=== PATIENT | female | born 1940 | race Caucasian/White ===

== ENCOUNTER 2017-01-20 18:01 | Emergency (ER) | payer MEDICARE, MEDICAID ==
[~2017-01-20] VITALS: Ht 160 cm; Wt 81.0 kg
[~2017-01-20 18:01] MED LIST: AMIT8CAP6 PO; AMLO2.5T PO; AMLO5TAB22 PO; ATEN-100 PO; CHOL50006 PO; COCO1000 PO; FENO54TA PO; FISH120014 PO; LACTCAP7 PO; LISI-360 PO; LORA-474 PO; MULT-118 PO; POTA-243 PO; PROT40TA PO
[2017-01-20 18:16] VITALS: BP 178/73; PULSE 69; RESP 17; TEMP 97.7; O2SAT 100
[2017-01-20] MEDS ORDERED: ZETI10TA5 PO (18:29)
[2017-01-20] MEDS ORDERED: POTA-243 PO (18:29)
[2017-01-20] MEDS ORDERED: FLUT50SP EACH NARE (18:29)
[2017-01-20] MEDS ORDERED: ALBU0.63 NEB (18:29)
[2017-01-20] MEDS ORDERED: LORA-474 PO (18:29)
[2017-01-20] MEDS ORDERED: ATEN25TA PO (18:29)
[2017-01-20] MEDS ORDERED: PROT40TA PO (18:29)
[2017-01-20] MEDS ORDERED: LOSA25TA PO (18:29)
[2017-01-20] MEDS ORDERED: SODIUM CHLORIDE 0.9% FLUSH 5 ML FLUSH IVF PRN (18:30)
[2017-01-20] MEDS ORDERED: ONDANSETRON HCL 4 MG/2 ML VIAL IV PUSH ONE (18:30)
[2017-01-20 18:33] VITALS: O2SAT 100
[2017-01-20 18:37] VITALS: BP_SYST 144; BP_SYST 176; BP_DIAS 74; BP_DIAS 88
[2017-01-20 18:37] LABS: AUTOMATED NEUTROPHIL # 3.7 TH/MM3 (1.8-7.7); BASOPHIL # 0.1 TH/MM3 (0-0.2); BASOPHIL % 1.1 % (0.0-2.0); EOSINOPHIL # 0.1 TH/MM3 (0-0.4); EOSINOPHIL % 2.1 % (0.0-4.0); HEMO FLAGS DIFF FINAL; LYMPHOCYTE # 2.1 TH/MM3 (1.0-4.8); MEAN CELL VOLUME 86.8 FL (80.0-100.0); MEAN CORPUSCULAR HEMOGLOBIN 28.2 PG (27.0-34.0); MEAN CORPUSCULAR HGB CONC 32.5 % (32.0-36.0); NEUT % 55.8 % (16.0-70.0); PLATELET COUNT 258 TH/MM3 (150-450); RED BLOOD COUNT 4.38 MIL/MM3 (4.00-5.30); RED CELL DISTRIBUTION WIDTH 13.3 % (11.6-17.2); WHITE BLOOD COUNT 6.5 TH/MM3 (4.0-11.0)
[2017-01-20 18:48] LABS: CHLORIDE 107 MEQ/L (98-107); POTASSIUM 3.4 MEQ/L (3.5-5.1); SODIUM (NA) 142 MEQ/L (136-145)
[2017-01-20 18:52] LABS: ANION GAP 10 MEQ/L (5-15); BICARBONATE 25.4 MEQ/L (21.0-32.0); BLOOD UREA NITROGEN 17 MG/DL (7-18); MAGNESIUM 1.8 MG/DL (1.5-2.5)
--- NOTE | 2017-01-20 18:52 | RADHPO ---
EXAM DATE/TIME: 01/20/2017 18:26 [facility] COMPARISON: CHEST SINGLE AP, August 28, 2014, 23:41. INDICATIONS : Chest pain. Weakness. MEDICAL HISTORY : Congestive heart failure. SURGICAL HISTORY : CABG. Pacemaker. ENCOUNTER: Initial ACUITY: 2 days PAIN SCORE: 2/10 LOCATION: Bilateral chest FINDINGS: Single view of the chest demonstrates interval placement of a dual-lead pacemaker inserted through th e left subclavian vein. Leads appear to be in appropriate position. There is no evidence of pneumothorax or acute process. Heart and mediastinal structures are stable. There is evidence of previous open heart surgery. CONCLUSION: Interval placement of a left-sided transvenous pacemaker which appears to be in appropriate position. No evidence of acute cardiopulmonary process. Pio Veronica MD on January 20, 2017 at 18:50 Board Certified Radiologist. This report was verified electronically.
[2017-01-20 18:54] LABS: APTT (PATIENT) 27.3 SEC (24.3-30.1)
[2017-01-20 18:55] LABS: GLOMERULAR FILTRATION RATE 71 ML/MIN (>89)
--- NOTE | 2017-01-20 19:09 | PD ---
HPI . Epigastric pain Chief Complaint: Pain: Acute or Chronic Time Seen by Provider: 18:10 Travel History International Travel<30 days: No Contact w/Intl Traveler<30days: No Traveled to known affect area: No History of Present Illness HPI Patient presents with the acute onset of epigastric pain nausea. She was reportedly quite pale. The symptoms started sometime after lunch. She has not vomited. She reports chronic shortness of breath related to COPD. In addition, the patient reports a concussion on November 26 which has left her with some residual right-sided weakness. She has been using a walker since that time. She states that she has chronic headaches and dizziness because of the concussion. She reports that she was seen at an outside facility at the time of the injury. 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) Cerebrovascular Accident: Yes (TIA?) Diabetes: No Diminished Hearing: Yes (R HEARING DIMINISHED) Diverticulitis: Yes (DIVERTICULOSIS) Endocrine: No Gastrointestinal Disorders: Yes (GERD; GASTRITIS; ) GERD: Yes Genitourinary: Yes ("CYSTIC KIDNEYS") Hiatal Hernia: Yes Hypertension: Yes Immune Disorder: No Kidney Stones: No Medical other: Yes (POST CONCUSSION SYNDROM 11/2016) Musculoskeletal: Yes (ARTHRITIS; BACK PAIN;KNEE PAIN) Neurologic: Yes (NEUROPATHY) Psychiatric: No Respiratory: Yes (COPD; ASTHMA) Migraines: Yes Pneumonia: Yes Radiation Therapy: No Renal Failure: No Seizures: No Sickle Cell Disease: No Sleep Apnea: No Thyroid Disease: No Ulcer: No Tetanus Vaccination: > 5 Years Influenza Vaccination: Yes Menopausal: Yes : 5 Para: 4 Miscarriage: 1 Tubal Ligation: Yes Past Surgical History Abdominal Surgery: Yes (.APPENDECTOMY ; VANDANA) AICD: No Appendectomy: Yes Arteriovenous Shunt: No Body Medical Devices: NONE Cardiac Surgery: No Cholecystectomy: Yes Ear Surgery: No Endocrine Surgery: Yes (TUMOR REMOVED FROM THYMUS) Eye Surgery: No Genitourinary Surgery: No Gynecologic Surgery: Yes (HYSTERECTOMY; BILATERAL SALPINGO-OOPHORECTOMY) Hysterectomy: Yes Insulin Pump: No Joint Replacement: No Oral Surgery: No Pacemaker: Yes (MEDTRONIC) Thoracic Surgery: Yes Other Surgery: Yes (THYMUS GLAND SURGERY, RIGHT WRIST) Social History Alcohol Use: No Tobacco Use: No (QUIT 36 YEARS, SMOKED FOR 30+ YRS 2+ PACK OF CIGS A DAY) Substance Use: No Allergies-Medications (Allergen,Severity, Reaction): Coded Allergies: Amoxicillin (Verified Allergy, Severe, 01/20/17) Chlorpheniramine (Verified Allergy, Severe, 01/20/17) Clavulanic Acid (Verified Allergy, Severe, 01/20/17) Guaifenesin (Verified Allergy, Severe, PVC, 01/20/17) PT REPORTS ALLERGY TO ALL DECONGESTANTS Levaquin (Verified Allergy, Severe, NAUSEA/VOMITING, 01/20/17) INTERMEDIATE REACTION Niacin (Verified Allergy, Severe, SKIN BURNING ; SEVERE REDNESS WHOLE BODY , 01/20/17) Pseudoephedrine (Verified Allergy, Severe, 01/20/17) Augmentin (Verified Allergy, Intermediate, NAUSEA AND VOMITING, 01/20/17) Benadryl (Verified Allergy, Intermediate, PVC, 01/20/17) PT DOES NOT THINK SHE IS ALLERGIC TO THIS Codeine (Verified Allergy, Intermediate, SHAKING; NAUSEA, 01/20/17) MILD REACTION Morphine (Verified Allergy, Mild, 01/20/17) DOESNT THINK SHE IS ALLERGIC TO THIS Cipro (Verified Adverse Reaction, Intermediate, n/v, 01/20/17) Uncoded Allergies: ANTIHISTIMINES (Allergy, Unknown, 05/16/14) DECONGESTANTS (Allergy, Unknown, 05/16/14) Reported Meds & Prescriptions Reported Meds & Active Scripts Active Fioricet (Kosexuavjn-Squlmryxarppl-Xcfdogtq) 50-300-40 Mg Cap 1-2 Cap PO Q6H PRN Zofran Odt (Ondansetron Odt) 4 Mg Tab 4 Mg SL Q6HR PRN Reported Albuterol Neb (Albuterol Sulfate) 0.63 Mg/3 Ml Neb 0.63 Mg NEB Q4HR NEB PRN Fluticasone Nasal [place] 50 Mcg/Act Naspr 100 Mcg EACH NARE BID 50 mcg/spray Zetia (Ezetimibe) 10 Mg Tab 10 Mg PO DAILY Losartan (Losartan Potassium) 25 Mg Tab 25 Mg PO DAILY Klor-Con 10 (Potassium Chloride) 10 Meq Tab 10 Meq PO DAILY Protonix (Pantoprazole Sodium) 40 Mg Tab 40 Mg PO DAILY Ativan (Lorazepam) 1 Mg Tab 1.5 Mg PO TID PRN Atenolol 25 Mg Tab 12.5 Mg PO DAILY Review of Systems Except as stated in HPI: all other systems reviewed are Neg General / Constitutional: Positive: Other (reportedly pale earlier today), No : Fever, Chills Eyes: No: Blurred Vision, Photophobia HENT: Positive: Headaches, Lightheadedness Cardiovascular: No: Chest Pain or Discomfort Respiratory: Positive: Shortness of Breath Gastrointestinal: Positive: Nausea, Abdominal Pain, No: Vomiting, Diarrhea Genitourinary: No: Urgency, Frequency, Dysuria Neurologic: Positive: Dizziness, Focal Abnormalities (right sided weakness since November 26.) Physical Exam Narrative GENERAL: Healthy-appearing older woman who is in no acute distress. SKIN: Warm and dry. HEAD: Normocephalic. She has 2 palpable contusions on the right side of her scalp. They're very small. EYES: Pupils equal and round. Extraocular movements are intact. ENT: No nasal bleeding or discharge. Mucous membranes pink and moist. NECK: Trachea midline. Neck is supple. CARDIOVASCULAR: Regular rate and rhythm. Heart sounds are normal. RESPIRATORY: No accessory muscle use. Lungs are clear with full air movement throughout. GASTROINTESTINAL: Abdomen soft. Epigastric tenderness. Nondistended. Normal bowel sounds. MUSCULOSKELETAL: No obvious deformities. No edema. NEUROLOGICAL: Awake and alert. No obvious cranial nerve deficits. Motor grossly within normal limits. Normal speech. PSYCHIATRIC: Appropriate mood and affect; insight and judgment normal. Data Data Last Documented VS Vital Signs Date Time Temp Pulse Resp B/P Pulse Ox O2 Delivery O2 Flow Rate FiO2 01/20/17 19:23 60 18 151/89 97 Room Air 01/20/17 18:16 97.7 Orders Basic Metabolic Panel (Bmp) (01/20/17 18:20) Ckmb (Isoenzyme) Profile (01/20/17 18:20) Complete Blood Count With Diff (01/20/17 18:20) Magnesium (Mg) (01/20/17 18:20) Prothrombin Time / Inr (Pt) (01/20/17 18:20) Act Partial Throm Time (Ptt) (01/20/17 18:20) Troponin I (01/20/17 18:20) Lipase (01/20/17 18:20) Chest, Single Ap (01/20/17 18:20) Ecg Monitoring (01/20/17 18:20) Bilateral Bp Monitoring (01/20/17 18:20) Iv Access Insert/Monitor (01/20/17 18:20) Oximetry (01/20/17 18:20) Oxygen Administration (01/20/17 18:20) Sodium Chloride 0.9% Flush (Ns Flush) (01/20/17 18:30) Ondansetron Inj (Zofran Inj) (01/20/17 18:30) Ct Brain W/O Iv Contrast(Rout) (01/20/17 ) Electrocardiogram (01/20/17 18:05) Labs Laboratory Tests Test 01/20/17 18:29 White Blood Count 6.5 TH/MM3 Red Blood Count 4.38 MIL/MM3 Hemoglobin 12.3 GM/DL Hematocrit 38.0 % Mean Corpuscular Volume 86.8 FL Mean Corpuscular Hemoglobin 28.2 PG Mean Corpuscular Hemoglobin 32.5 % Concent Red Cell Distribution Width 13.3 % Platelet Count 258 TH/MM3 Mean Platelet Volume 8.0 FL Neutrophils (%) (Auto) 55.8 % Lymphocytes (%) (Auto) 33.0 % Monocytes (%) (Auto) 8.0 % Eosinophils (%) (Auto) 2.1 % Basophils (%) (Auto) 1.1 % Neutrophils # (Auto) 3.7 TH/MM3 Lymphocytes # (Auto) 2.1 TH/MM3 Monocytes # (Auto) 0.5 TH/MM3 Eosinophils # (Auto) 0.1 TH/MM3 Basophils # (Auto) 0.1 TH/MM3 CBC Comment DIFF FINAL Differential Comment Prothrombin Time 11.0 SEC Prothromb Time International 1.0 RATIO Ratio Activated Partial 27.3 SEC Thromboplast Time Sodium Level 142 MEQ/L Potassium Level 3.4 MEQ/L Chloride Level 107 MEQ/L Carbon Dioxide Level 25.4 MEQ/L Anion Gap 10 MEQ/L Blood Urea Nitrogen 17 MG/DL Creatinine 0.79 MG/DL Estimat Glomerular Filtration 71 ML/MIN Rate Random Glucose 101 MG/DL Calcium Level 8.5 MG/DL Magnesium Level 1.8 MG/DL Total Creatine Kinase 89 U/L Troponin I LESS THAN 0.02 NG/ML Lipase 319 U/L MDM Medical Decision Making Medical Screen Exam Complete: Yes Emergency Medical Condition: Yes Interpretation(s) EKG shows a sinus rhythm with no ST segment elevation or depression. Differential Diagnosis Differential diagnosis of epigastric pain includes but is not limited to musculoskeletal pain, pulmonary embolism, acute coronary syndrome, pneumonia, pleurisy Narrative Course Patient presents for the evaluation of epigastric pain associated with nausea and paleness. I will also further evaluate her head injury which occurred on November 26 and left her with residual right-sided weakness and chronic headaches. Specifically , she will have a head CT. CBC & BMP Diagram 01/20/17 18:29 Cardiac enzymes are negative. Lipase is normal. Chest x-ray shows a pacemaker. No acute process. The chest x-ray was independently viewed by me. CT head CONCLUSION: Stable appearance of the brain. No evidence of acute infarct, hemorrhage, mass or edema. Diagnosis Primary Impression: Epigastric pain Additional Impression: Postconcussive syndrome Additional Instructions: Follow-up with your Primary Care Physician for ongoing treatment of the postconcussive headaches. Med/Other Pt SpecificInfo: Prescription(s) given Scripts Xgxuaqroud-Megbrzuvjvuhj-Nwkprtmw (Fioricet)50-300-40 Mg Cap1-2 Cap PO Q6H PRN ( HEADACHE) #12 CAP Ref 0 Prov:Abby Zimmer MD 01/20/17 Ondansetron Odt (Zofran Odt)4 Mg Tab4 Mg SL Q6HR PRN (Nausea/Vomiting) #30 TAB Ref 0 Prov:Abby Zimmer MD 01/20/17 Disposition: 01 DISCHARGE HOME Condition: Stable Abby Zimmer MD Jan 20, 2017 19:09
[2017-01-20 19:23] VITALS: BP 151/89; PULSE 60; RESP 18; O2SAT 97
[2017-01-20 19:38] LABS: CREATINE KINASE 89 U/L (26-192)
[2017-01-20] MEDS ORDERED: ZOFR4TAB3 SL (19:50)
[2017-01-20] MEDS ORDERED: BUTA1CAP PO (19:50)
--- NOTE | 2017-01-20 19:59 | RADHPO ---
EXAM DATE/TIME: 01/20/2017 19:04 [facility] COMPARISON: CT BRAIN W/O CONTRAST, April 04, 2014, 18:21. INDICATIONS : Cephalgia. Blurred vision. Weakness. RADIATION DOSE: 61.02 CTDIvol (mGy) MEDICAL HISTORY : Hypertension. Cerebrovascular disease. Chronic obstructive pulmonary disease. SURGICAL HISTORY : Appendectomy. Cholecystectomy.Pacemaker. ENCOUNTER: Initial ACUITY: 2 months PAIN SCALE: 6/10 LOCATION: cranial TECHNIQUE: Multiple contiguous axial images were obtained of the head. Using automated exposure control and adj ustment of the mA and/or kV according to patient size, radiation dose was kept as low as reasonably a chievable to obtain optimal diagnostic quality images. FINDINGS: CEREBRUM: The ventricles are normal for age. No evidence of midline shift, mass lesion, hemorrhage or acute in farction. No extra-axial fluid collections are seen. POSTERIOR FOSSA: The cerebellum and brainstem are intact. The 4th ventricle is midline. The cerebellopontine angle i s unremarkable. EXTRACRANIAL: The visualized portion of the orbits is intact. SKULL: The calvaria is intact. No evidence of skull fracture. CONCLUSION: Stable appearance of the brain. No evidence of acute infarct, hemorrhage, mass or edema. Pio Veronica MD on January 20, 2017 at 19:57 Board Certified Radiologist. This report was verified electronically.
[2017-01-20 20:32] VITALS: BP 152/84; PULSE 62; RESP 18; O2SAT 98
--- NOTE | 2017-01-21 10:57 | EKG ---
Date Performed: 01/20/2017 Time Performed: 18:05:58 PTAGE: 76 years EKG: Sinus rhythm . Leftward axis Lateral T wave changes are nonspecific Borderline ECG PREVIOUS TRACING : 02/06/2015 07.31 DOCTOR: Oliver Aly Interpretating Date/Time 01/21/2017 10:55:08
== END 2017-01-20 20:42 | disposition home or self-care (01) ==
LOC: PHED 18:01
DX: R10.13 Epigastric pain (principal); F07.81 Postconcussional syndrome; I10 Essential (primary) hypertension; M19.90 Unspecified osteoarthritis, unspecified site; J45.909 Unspecified asthma, uncomplicated; E78.00 Pure hypercholesterolemia, unspecified
CPT/HCPCS: 70450; 71010; 80048; 82550; 83690; 83735; 84484; 85025; 85610; 85730; 93005; 96374; 99284; J2405

== ENCOUNTER 2017-05-15 07:41 | Emergency (ER) | payer MEDICARE, MEDICAID ==
[~2017-05-15 07:41] MED LIST changes: +ALBU0.63 NEB; -AMIT8CAP6 PO; -AMLO2.5T PO; -AMLO5TAB22 PO; -ATEN-100 PO; +ATEN25TA PO; +BUTA1CAP PO; -CHOL50006 PO; -COCO1000 PO; -FENO54TA PO; -FISH120014 PO; +FLUT50SP EACH NARE; -LACTCAP7 PO; -LISI-360 PO; +LOSA25TA PO; -MULT-118 PO; +ZETI10TA5 PO; +ZOFR4TAB3 SL
[2017-05-15 07:49] VITALS: BP 160/74; PULSE 74; RESP 18; O2SAT 98
[2017-05-15 07:56] VITALS: BP 127/69; PULSE 63; RESP 18; TEMP 97.8; O2SAT 98
[2017-05-15] MEDS ORDERED: SODIUM CHLORIDE 0.9% FLUSH 10 ML FLUSH IVF PRN (08:00)
[2017-05-15] MEDS ORDERED: LORazepam 2 MG/ML VIAL IV PUSH PRN (08:00)
[2017-05-15] MEDS ORDERED: ASPIRIN 81 MG CHEW TAB PO ONE (08:00)
[2017-05-15] MEDS ORDERED: NORV2.5T PO (08:05)
[2017-05-15] MEDS ORDERED: ASPI81CH CHEW (08:05)
[2017-05-15 08:18] LABS: AUTOMATED NEUTROPHIL # 4.1 TH/MM3 (1.8-7.7); BASOPHIL # 0.1 TH/MM3 (0-0.2); BASOPHIL % 1.6 % (0.0-2.0); EOSINOPHIL # 0.2 TH/MM3 (0-0.4); EOSINOPHIL % 3.6 % (0.0-4.0); HEMATOCRIT 37.1 % (35.0-46.0); HEMO FLAGS DIFF FINAL; LYMPH % 21.9 % (9.0-44.0); LYMPHOCYTE # 1.3 TH/MM3 (1.0-4.8); MEAN CELL VOLUME 85.7 FL (80.0-100.0); MEAN CORPUSCULAR HEMOGLOBIN 28.6 PG (27.0-34.0); MEAN CORPUSCULAR HGB CONC 33.4 % (32.0-36.0); MONO % 6.5 % (0.0-8.0); NEUT % 66.4 % (16.0-70.0); PLATELET COUNT 230 TH/MM3 (150-450); RED BLOOD COUNT 4.33 MIL/MM3 (4.00-5.30); RED CELL DISTRIBUTION WIDTH 14.4 % (11.6-17.2); WHITE BLOOD COUNT 6.1 TH/MM3 (4.0-11.0)
--- NOTE | 2017-05-15 08:21 | PD ---
HPI . Chest pain Chief Complaint: Chest Pain Time Seen by Provider: 07:52 Travel History International Travel<30 days: No Contact w/Intl Traveler<30days: No Traveled to known affect area: No History of Present Illness HPI This patient presents with a chief complaint of chest pain. Onset was last night. It is associated with shortness of breath. She describes the pain as a pressure-like sensation and rates it as 6/10. She denies any associated diaphoresis. She reports that her pain is exacerbated by palpation. It is also worse with deep respirations. 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) Cerebrovascular Accident: Yes (TIA?) Diabetes: No Diminished Hearing: Yes (R HEARING DIMINISHED) Diverticulitis: Yes (DIVERTICULOSIS) Endocrine: No Gastrointestinal Disorders: Yes (GERD; GASTRITIS; ) GERD: Yes Genitourinary: Yes ("CYSTIC KIDNEYS") Hiatal Hernia: Yes Hypertension: Yes Immune Disorder: No Kidney Stones: No Musculoskeletal: Yes (ARTHRITIS; BACK PAIN;KNEE PAIN) Neurologic: Yes (NEUROPATHY) Psychiatric: No Respiratory: Yes (COPD; ASTHMA) Migraines: Yes Pneumonia: Yes Radiation Therapy: No Renal Failure: No Seizures: No Sickle Cell Disease: No Sleep Apnea: No Thyroid Disease: No Ulcer: No Influenza Vaccination: Yes ?: Not Menopausal: Yes : 5 Para: 4 Miscarriage: 1 Tubal Ligation: Yes Past Surgical History Abdominal Surgery: Yes (.APPENDECTOMY ; VANDANA) AICD: No Appendectomy: Yes Arteriovenous Shunt: No Body Medical Devices: NONE Cardiac Surgery: No Cholecystectomy: Yes Ear Surgery: No Endocrine Surgery: Yes (TUMOR REMOVED FROM THYMUS) Eye Surgery: No Genitourinary Surgery: No Gynecologic Surgery: Yes (HYSTERECTOMY; BILATERAL SALPINGO-OOPHORECTOMY) Hysterectomy: Yes Insulin Pump: No Joint Replacement: No Oral Surgery: No Pacemaker: Yes (MEDTRONIC) Thoracic Surgery: Yes Other Surgery: Yes (THYMUS GLAND SURGERY, RIGHT WRIST) Social History Alcohol Use: No Tobacco Use: No (QUIT 36 YEARS, SMOKED FOR 30+ YRS 2+ PACK OF CIGS A DAY) Substance Use: No Allergies-Medications (Allergen,Severity, Reaction): Coded Allergies: Amoxicillin (Verified Allergy, Severe, 05/15/17) Chlorpheniramine (Verified Allergy, Severe, 05/15/17) Clavulanic Acid (Verified Allergy, Severe, 05/15/17) Guaifenesin (Verified Allergy, Severe, PVC, 05/15/17) PT REPORTS ALLERGY TO ALL DECONGESTANTS Levaquin (Verified Allergy, Severe, NAUSEA/VOMITING, 05/15/17) INTERMEDIATE REACTION Niacin (Verified Allergy, Severe, SKIN BURNING ; SEVERE REDNESS WHOLE BODY , 05/15/17) Pseudoephedrine (Verified Allergy, Severe, 05/15/17) Augmentin (Verified Allergy, Intermediate, NAUSEA AND VOMITING, 05/15/17) Benadryl (Verified Allergy, Intermediate, PVC, 05/15/17) PT DOES NOT THINK SHE IS ALLERGIC TO THIS Codeine (Verified Allergy, Intermediate, SHAKING; NAUSEA, 05/15/17) MILD REACTION Morphine (Verified Allergy, Mild, 05/15/17) DOESNT THINK SHE IS ALLERGIC TO THIS Cipro (Verified Adverse Reaction, Intermediate, n/v, 05/15/17) Uncoded Allergies: ANTIHISTIMINES (Allergy, Unknown, 05/16/14) DECONGESTANTS (Allergy, Unknown, 05/16/14) Reported Meds & Prescriptions Reported Meds & Active Scripts Active Reported Aspirin 81 Mg Chew 81 Mg CHEW DAILY Norvasc (Amlodipine Besylate) 2.5 Mg Tab 2.5 Mg PO HS Albuterol Neb (Albuterol Sulfate) 0.63 Mg/3 Ml Neb 0.63 Mg NEB Q4HR NEB PRN Fluticasone Nasal [place] 50 Mcg/Act Naspr 100 Mcg EACH NARE BID 50 mcg/spray Zetia (Ezetimibe) 10 Mg Tab 10 Mg PO DAILY Losartan (Losartan Potassium) 25 Mg Tab 25 Mg PO DAILY Protonix (Pantoprazole Sodium) 40 Mg Tab 40 Mg PO DAILY Ativan (Lorazepam) 1 Mg Tab 1.5 Mg PO TID PRN Atenolol 25 Mg Tab 12.5 Mg PO DAILY Review of Systems Except as stated in HPI: all other systems reviewed are Neg General / Constitutional: No: Fever, Chills Eyes: No: Blurred Vision HENT: Positive: Headaches Cardiovascular: Positive: Chest Pain or Discomfort, No: Palpitations, Irregular Rhythm, Diaphoresis Respiratory: Positive: Shortness of Breath Gastrointestinal: Positive: Nausea, No: Vomiting, Diarrhea Neurologic: Positive: Weakness (legs feel weak), Headache (chronic daily headaches) Physical Exam Narrative GENERAL: This is a healthy-appearing elderly woman who is in no acute distress. SKIN: Warm and dry. HEAD: Atraumatic. Normocephalic. EYES: Pupils equal and round. Extraocular movements are intact. ENT: No nasal bleeding or discharge. Mucous membranes pink and moist. NECK: Trachea midline. Neck supple. CARDIOVASCULAR: Regular rate and rhythm. Heart sounds are normal. RESPIRATORY: No accessory muscle use. Lungs are clear with full air movement throughout. GASTROINTESTINAL: Abdomen soft, non-tender, nondistended. MUSCULOSKELETAL: No obvious deformities. No edema. NEUROLOGICAL: Awake and alert. No obvious cranial nerve deficits. Motor grossly within normal limits. Normal speech. PSYCHIATRIC: Appropriate mood and affect; insight and judgment normal. Data Data Last Documented VS Vital Signs Date Time Temp Pulse Resp B/P Pulse Ox O2 Delivery O2 Flow Rate FiO2 05/15/17 09:08 64 18 134/63 98 Room Air 05/15/17 07:56 97.8 Orders Basic Metabolic Panel (Bmp) (05/15/17 07:52) Ckmb (Isoenzyme) Profile (05/15/17 07:52) Complete Blood Count With Diff (05/15/17 07:52) Magnesium (Mg) (05/15/17 07:52) Prothrombin Time / Inr (Pt) (05/15/17 07:52) Act Partial Throm Time (Ptt) (05/15/17 07:52) Troponin I (05/15/17 07:52) Chest, Single Ap (05/15/17 07:52) Ecg Monitoring (05/15/17 07:52) Iv Access Insert/Monitor (05/15/17 07:52) Oximetry (05/15/17 07:52) Aspirin Chew (Aspirin Chew) (05/15/17 08:00) Sodium Chloride 0.9% Flush (Ns Flush) (05/15/17 08:00) Lorazepam Inj (Ativan Inj) (05/15/17 08:00) Labs Laboratory Tests Test 05/15/17 08:10 White Blood Count 6.1 TH/MM3 Red Blood Count 4.33 MIL/MM3 Hemoglobin 12.4 GM/DL Hematocrit 37.1 % Mean Corpuscular Volume 85.7 FL Mean Corpuscular Hemoglobin 28.6 PG Mean Corpuscular Hemoglobin 33.4 % Concent Red Cell Distribution Width 14.4 % Platelet Count 230 TH/MM3 Mean Platelet Volume 8.1 FL Neutrophils (%) (Auto) 66.4 % Lymphocytes (%) (Auto) 21.9 % Monocytes (%) (Auto) 6.5 % Eosinophils (%) (Auto) 3.6 % Basophils (%) (Auto) 1.6 % Neutrophils # (Auto) 4.1 TH/MM3 Lymphocytes # (Auto) 1.3 TH/MM3 Monocytes # (Auto) 0.4 TH/MM3 Eosinophils # (Auto) 0.2 TH/MM3 Basophils # (Auto) 0.1 TH/MM3 CBC Comment DIFF FINAL Differential Comment Prothrombin Time 11.1 SEC Prothromb Time International 1.0 RATIO Ratio Activated Partial 27.9 SEC Thromboplast Time Sodium Level 143 MEQ/L Potassium Level 3.6 MEQ/L Chloride Level 110 MEQ/L Carbon Dioxide Level 25.4 MEQ/L Anion Gap 8 MEQ/L Blood Urea Nitrogen 12 MG/DL Creatinine 0.74 MG/DL Estimat Glomerular Filtration 77 ML/MIN Rate Random Glucose 109 MG/DL Calcium Level 8.7 MG/DL Magnesium Level 1.9 MG/DL Total Creatine Kinase 72 U/L Troponin I LESS THAN 0.02 NG/ML MDM Medical Decision Making Medical Screen Exam Complete: Yes Emergency Medical Condition: Yes Medical Record Reviewed: Yes (past medical history is significant for COPD, hypertension, hyperlipidemia, anxiety, previous concussion with resultant chronic headaches) Interpretation(s) EKG shows a paced rhythm with a ventricular rate of 63. No acute ischemic changes. Differential Diagnosis Differential diagnosis of chest pain includes but is not limited to musculoskeletal pain, pulmonary embolism, acute coronary syndrome, pneumonia, pleurisy Narrative Course Patient presents with a chief complaint of chest pain. She has had the chest pain since last night. Initial EKG is unremarkable. Chest x-ray and routine blood work are pending including cardiac enzymes. CBC & BMP Diagram 05/15/17 08:10 Last Impressions Chest X-Ray 05/15/17 [id number] Signed Impressions: Service Date/Time: Monday, May 15, 2017 08:00 - CONCLUSION: 1. No acute cardiopulmonary disease. Bart Skinner MD The chest x-ray was independently reviewed by me. Cardiac enzymes are negative. This patient presents with 12+ hours of chest pain. The patient has been resting comfortably after receiving Ativan. I feel that her symptoms were more anxiety related than anything. The patient has had pain for more than 12 hours. The likelihood of ACS with a normal workup following this long of a period of time is very slim. This patient is safe for discharge to home. Diagnosis Primary Impression: Chest pain Qualified Code: R07.9 - Chest pain, unspecified type Patient Instructions: Chest Pain (DC), General Instructions Disposition: 01 DISCHARGE HOME Condition: Stable Abby Zimmer MD May 15, 2017 08:21
[2017-05-15 08:23] LABS: CHLORIDE 110 MEQ/L (98-107); POTASSIUM 3.6 MEQ/L (3.5-5.1); SODIUM (NA) 143 MEQ/L (136-145)
--- NOTE | 2017-05-15 08:25 | RADRPT ---
EXAM DATE/TIME: 05/15/2017 08:00 [facility] COMPARISON: CHEST SINGLE AP, January 20, 2017, 18:26. INDICATIONS : Chest pain. MEDICAL HISTORY : Cardiovascular disease. Chronic obstructive pulmonary disease. Hypertension. SURGICAL HISTORY : CABG. Pacemaker. ENCOUNTER: Initial ACUITY: 1 PAIN SCORE: 5/10 LOCATION: chest FINDINGS: Dual-lead pacemaker in place. Median sternotomy wires. No significant focal pleural or parenchymal op acities. Cardiomediastinal contours are within normal limits. Bony thorax is intact. CONCLUSION: 1. No acute cardiopulmonary disease. Bart Skinner MD on May 15, 2017 at 8:22 Board Certified Radiologist. This report was verified electronically.
[2017-05-15 08:27] LABS: ANION GAP 8 MEQ/L (5-15); APTT (PATIENT) 27.9 SEC (24.3-30.1); BICARBONATE 25.4 MEQ/L (21.0-32.0); BLOOD UREA NITROGEN 12 MG/DL (7-18); MAGNESIUM 1.9 MG/DL (1.5-2.5); PROTHROMBIN TIME - PATIENT 11.1 SEC (9.8-11.6)
[2017-05-15 08:30] LABS: GLOMERULAR FILTRATION RATE 77 ML/MIN (>89)
[2017-05-15 09:08] VITALS: BP 134/63; PULSE 64; RESP 18; O2SAT 98
[2017-05-15 09:10] LABS: CREATINE KINASE 72 U/L (26-192)
--- NOTE | 2017-05-16 11:44 | EKG ---
Date Performed: 05/15/2017 Time Performed: 07:48:27 PTAGE: 76 years EKG: ELECTRONIC ATRIAL PACEMAKER BORDERLINE LEFT AXIS DEVIATION Compared to previous tracing, at rial pacing is new. ABNORMAL RHYTHM ECG PREVIOUS TRACING : 01/20/2017 18.05 DOCTOR: Rufino Mcgowan Interpretating Date/Time 05/16/2017 11:42:09
== END 2017-05-15 09:30 | disposition home or self-care (01) ==
LOC: PHED 07:41
DX: R07.9 Chest pain, unspecified (principal); R06.02 Shortness of breath; R94.31 Abnormal electrocardiogram [ECG] [EKG]; I10 Essential (primary) hypertension; E78.00 Pure hypercholesterolemia, unspecified; H91.91 Unspecified hearing loss, right ear; Z95.0 Presence of cardiac pacemaker; Z86.59 Personal history of other mental and behavioral disorders; Z87.39 Personal history of other diseases of the musculoskeletal system and connective tissue; Z87.09 Personal history of other diseases of the respiratory system; Z86.79 Personal history of other diseases of the circulatory system; Z87.19 Personal history of other diseases of the digestive system; Z87.448 Personal history of other diseases of urinary system; Z86.69 Personal history of other diseases of the nervous system and sense organs
CPT/HCPCS: 71010; 80048; 82550; 83735; 84484; 85025; 85610; 85730; 93005; 96374; 99284; J2060

== ENCOUNTER 2017-09-15 17:31 | Observation (INO) | payer MEDICARE, MEDICAID ==
[2017-09-15] VITALS (7 sets, daily range): BP systolic 106–165; BP diastolic 57–76; PULSE 60–76; RESP 16–20; TEMP 96.3–97.8; O2SAT 93–98
[~2017-09-15] VITALS: Ht 165.1 cm; Wt 63.4 kg
[~2017-09-15 17:31] MED LIST changes: +ASPI81CH CHEW; -BUTA1CAP PO; +LORA-392 SL; +NORV2.5T PO; -POTA-243 PO; -ZOFR4TAB3 SL
[2017-09-15] MEDS: NITROGLYCERIN 0.4 MG SL 25 TABS/BTL SL SCH ×3 (18:00→18:10)
[2017-09-15] MEDS ORDERED: ASPIRIN 81 MG CHEW TAB PO ONE (18:00)
[2017-09-15] MEDS ORDERED: VITA100064 PO (18:06)
[2017-09-15] MEDS ORDERED: HYDR-3516 PO (18:06)
[2017-09-15] MEDS ORDERED: VITA100021 SL (18:06)
--- NOTE | 2017-09-15 18:07 | PD ---
HPI Chief Complaint: Chest Pain Time Seen by Provider: 17:42 Travel History International Travel<30 days: No Contact w/Intl Traveler<30days: No Traveled to known affect area: No History of Present Illness HPI 76yo F with PMH of HTN, anxiety, COPD, HLD presents to the ED with c/o chest pain since last night. Said it was constant and dull but then there are episodes of sharp chest pain that is intermittent. Associated with nausea. States she has COPD and is not more sob than normal. Denies any fever, cough, diaphoresis, n/v, abdominal pain, focal weakness or numbness. Pt said she had her pacemaker from [employer] checked this past Thursday and it was fine. She last had nuclear stress test maybe 5-6 months ago and it was fine. Pt took 81mg of aspirin today. Said she went to [facility] today and they didnt do anything but an xray. Said they didnt even draw blood. Dr. Lovett is her hebrew cantor. 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) Cerebrovascular Accident: Yes (TIA?) Diabetes: No Diminished Hearing: Yes (R HEARING DIMINISHED) Diverticulitis: Yes (DIVERTICULOSIS) Endocrine: No Gastrointestinal Disorders: Yes (GERD; GASTRITIS; ) GERD: Yes Genitourinary: Yes ("CYSTIC KIDNEYS") Hiatal Hernia: Yes Hypertension: Yes Immune Disorder: No Kidney Stones: No Musculoskeletal: Yes (ARTHRITIS; BACK PAIN;KNEE PAIN) Neurologic: Yes (NEUROPATHY) Psychiatric: No Respiratory: Yes (COPD; ASTHMA) Immunizations Current: Yes Migraines: Yes Pneumonia: Yes Radiation Therapy: No Renal Failure: No Seizures: No Sickle Cell Disease: No Sleep Apnea: No Thyroid Disease: No Ulcer: No Tetanus Vaccination: > 5 Years Influenza Vaccination: No ?: Not Menopausal: Yes : 5 Para: 4 Miscarriage: 1 Tubal Ligation: Yes Past Surgical History Abdominal Surgery: Yes (.APPENDECTOMY ; VANDANA) AICD: No Appendectomy: Yes Arteriovenous Shunt: No Body Medical Devices: pacemaker Cardiac Surgery: No Cholecystectomy: Yes Ear Surgery: No Endocrine Surgery: Yes (TUMOR REMOVED FROM THYMUS) Eye Surgery: No Genitourinary Surgery: No Gynecologic Surgery: Yes (HYSTERECTOMY; BILATERAL SALPINGO-OOPHORECTOMY) Hysterectomy: Yes Insulin Pump: No Joint Replacement: No Neurologic Surgery: No Oral Surgery: No Pacemaker: Yes ([employer]) Thoracic Surgery: Yes Other Surgery: Yes (THYMUS GLAND SURGERY, RIGHT WRIST) Social History Alcohol Use: No Tobacco Use: No (QUIT 35 YEARS, SMOKED FOR 30+ YRS 2+ PACK OF CIGS A DAY) Substance Use: No Allergies-Medications (Allergen,Severity, Reaction): Coded Allergies: chlorpheniramine (Unverified Allergy, Severe, 09/15/17) clavulanic acid (Unverified Allergy, Severe, 09/15/17) guaifenesin (Unverified Allergy, Severe, PVC, 09/15/17) PT REPORTS ALLERGY TO ALL DECONGESTANTS levofloxacin (Unverified Allergy, Severe, NAUSEA/VOMITING, 09/15/17) INTERMEDIATE REACTION niacin (Unverified Allergy, Severe, SKIN BURNING ; SEVERE REDNESS WHOLE BODY, 09/15/17) pseudoephedrine (Unverified Allergy, Severe, 09/15/17) ticarcillin (Unverified Allergy, Severe, 09/15/17) amoxicillin (Unverified Allergy, Intermediate, NAUSEA AND VOMITING, ) codeine (Unverified Allergy, Intermediate, SHAKING; NAUSEA, 09/15/17) MILD REACTION diphenhydramine (Unverified Allergy, Intermediate, PVC, 09/15/17) PT DOES NOT THINK SHE IS ALLERGIC TO THIS morphine (Unverified Allergy, Mild, 09/15/17) DOESNT THINK SHE IS ALLERGIC TO THIS ciprofloxacin (Unverified Adverse Reaction, Intermediate, n/v, 09/15/17) Uncoded Allergies: ANTIHISTIMINES (Allergy, Unknown, 05/16/14) DECONGESTANTS (Allergy, Unknown, 05/16/14) Reported Meds & Prescriptions Reported Meds & Active Scripts Active Reported Vitamin D3 (Cholecalciferol) 1,000 Unit Tab 1,000 Units PO DAILY Vitamin B-12 (Cyanocobalamin) 1,000 Mcg Subl 1,000 Mcg SL DAILY Hydrocodone-Acetaminophen 5-325 mg Tab 1 Tab PO Q8HR PRN Aspirin 81 Mg Chew 81 Mg CHEW DAILY Norvasc (Amlodipine Besylate) 2.5 Mg Tab 2.5 Mg PO HS Albuterol Neb (Albuterol Sulfate) 0.63 Mg/3 Ml Neb 0.63 Mg NEB Q4HR NEB PRN Fluticasone Nasal [place] 50 Mcg/Act Naspr 100 Mcg EACH NARE BID 50 mcg/spray Zetia (Ezetimibe) 10 Mg Tab 10 Mg PO DAILY Losartan (Losartan Potassium) 25 Mg Tab 25 Mg PO DAILY Protonix (Pantoprazole Sodium) 40 Mg Tab 40 Mg PO DAILY Ativan (Lorazepam) 1 Mg Tab 1.5 Mg PO TID PRN Atenolol 25 Mg Tab 25 Mg PO DAILY Review of Systems Except as stated in HPI: all other systems reviewed are Neg Physical Exam Narrative GENERAL: 76yo F in mild distress. SKIN: Focused skin assessment warm/dry. HEAD: Atraumatic. Normocephalic. EYES: Pupils equal and round. No scleral icterus. No injection or drainage. CARDIOVASCULAR: Regular rate and rhythm. No murmur appreciated. CHEST WALL: No erythema. +TTP left chest. RESPIRATORY: No accessory muscle use. Clear to auscultation. Breath sounds equal bilaterally. GASTROINTESTINAL: Abdomen soft, non-tender, nondistended. MUSCULOSKELETAL: No obvious deformities. No clubbing. No cyanosis. No edema. NEUROLOGICAL: Awake and alert. No obvious cranial nerve deficits. Motor grossly within normal limits. Normal speech. PSYCHIATRIC: Appropriate mood and affect; insight and judgment normal. Data Data Last Documented VS Vital Signs Date Time Temp Pulse Resp B/P (MAP) Pulse Ox O2 Delivery O2 Flow Rate FiO2 09/15/17 19:33 60 16 134/63 (86) 97 Room Air 09/15/17 17:46 97.8 Orders Orders Basic Metabolic Panel (Bmp) (09/15/17 17:53) Complete Blood Count With Diff (09/15/17 17:53) Prothrombin Time / Inr (Pt) (09/15/17 17:53) Act Partial Throm Time (Ptt) (09/15/17 17:53) Troponin I (09/15/17 17:53) Lipase (09/15/17 17:53) Chest, Single Ap (09/15/17 17:53) Aspirin Chew (Aspirin Chew) (09/15/17 18:00) Nitroglycerin Sl (Nitrostat Sl) (09/15/17 18:00) Electrocardiogram (09/15/17 17:40) Admit Order (Ed Use Only) (09/15/17 19:49) Labs Laboratory Tests Test 09/15/17 17:45 White Blood Count 6.7 TH/MM3 Red Blood Count 4.15 MIL/MM3 Hemoglobin 11.8 GM/DL Hematocrit 36.1 % Mean Corpuscular Volume 87.1 FL Mean Corpuscular Hemoglobin 28.5 PG Mean Corpuscular Hemoglobin Concent 32.7 % Red Cell Distribution Width 14.6 % Platelet Count 336 TH/MM3 Mean Platelet Volume 8.5 FL Neutrophils (%) (Auto) 69.5 % Lymphocytes (%) (Auto) 20.9 % Monocytes (%) (Auto) 6.5 % Eosinophils (%) (Auto) 1.8 % Basophils (%) (Auto) 1.3 % Neutrophils # (Auto) 4.7 TH/MM3 Lymphocytes # (Auto) 1.4 TH/MM3 Monocytes # (Auto) 0.4 TH/MM3 Eosinophils # (Auto) 0.1 TH/MM3 Basophils # (Auto) 0.1 TH/MM3 CBC Comment DIFF FINAL Differential Comment Prothrombin Time 11.4 SEC Prothromb Time International Ratio 1.0 RATIO Activated Partial Thromboplast Time 28.7 SEC Blood Urea Nitrogen 22 MG/DL Creatinine 0.96 MG/DL Random Glucose 118 MG/DL Calcium Level 8.8 MG/DL Sodium Level 142 MEQ/L Potassium Level 3.6 MEQ/L Chloride Level 110 MEQ/L Carbon Dioxide Level 24.4 MEQ/L Anion Gap 8 MEQ/L Estimat Glomerular Filtration Rate 57 ML/MIN Troponin I LESS THAN 0.02 NG/ML Lipase 284 U/L [facility] Medical Decision Making Medical Screen Exam Complete: Yes Emergency Medical Condition: Yes Interpretation(s) EKG: Atrial pacemaker. LAD. TWI III. No significant ST segment elevation or depression. Differential Diagnosis Atypical chest pain vs. anxiety vs. ACS vs. musculoskeletal pain Narrative Course 76yo F with atypical chest pain. However, she does have risk factors. States chest pain is intermittent and has her hand over her chest. Pt given aspirin 243mg since she took her 81mg at home. Labs reviewed, no leukocytosis. Troponin negative. CXR showed no acute cardiopulmonary disease. Will admit pt for chest pain center for serial EKG and cardiac enzymes. Discussed with Dr. Juan and accepted to her service. Diagnosis Primary Impression: Chest pain Qualified Codes: R07.9 - Chest pain, unspecified Admitting Information Admitting Physician Requests: Ceci Huynh DO Sep 15, 2017 18:07
--- NOTE | 2017-09-15 18:18 | RADRPT ---
EXAM DATE/TIME: 09/15/2017 18:08 [facility] COMPARISON: CHEST SINGLE AP, May 15, 2017, 8:00. INDICATIONS : Sharp chest pains today. MEDICAL HISTORY : Hypertension. Cerebrovascular disease. Chronic obstructive pulmonary disease. SURGICAL HISTORY : Appendectomy. Cholecystectomy.Pacemaker. ENCOUNTER: Initial ACUITY: 1 day PAIN SCORE: 7/10 LOCATION: Left chest FINDINGS: The lungs are clear without infiltrate, nodule, or mass. There is no appreciable pleural effusion fo r technique. Heart and mediastinum are unremarkable. Left subclavian transvenous pacer wires are pre sent with tips in the right atrium and right ventricle. There is evidence for prior median sternotomy . CONCLUSION: No acute cardiopulmonary disease. Trey Crawford MD on September 15, 2017 at 18:16 Board Certified Radiologist. This report was verified electronically.
[2017-09-15 18:27] LABS: AUTOMATED NEUTROPHIL # 4.7 TH/MM3 (1.8-7.7); BASOPHIL # 0.1 TH/MM3 (0-0.2); BASOPHIL % 1.3 % (0.0-2.0); EOSINOPHIL # 0.1 TH/MM3 (0-0.4); EOSINOPHIL % 1.8 % (0.0-4.0); HEMATOCRIT 36.1 % (35.0-46.0); HEMOGLOBIN 11.8 GM/DL (11.6-15.3); LYMPH % 20.9 % (9.0-44.0); LYMPHOCYTE # 1.4 TH/MM3 (1.0-4.8); MEAN CELL VOLUME 87.1 FL (80.0-100.0); MEAN CORPUSCULAR HEMOGLOBIN 28.5 PG (27.0-34.0); MEAN CORPUSCULAR HGB CONC 32.7 % (32.0-36.0); MEAN PLATELET VOLUME 8.5 FL (7.0-11.0); MONO % 6.5 % (0.0-8.0); MONOCYTE # 0.4 TH/MM3 (0-0.9); NEUT % 69.5 % (16.0-70.0); PLATELET COUNT 336 TH/MM3 (150-450); RED BLOOD COUNT 4.15 MIL/MM3 (4.00-5.30); RED CELL DISTRIBUTION WIDTH 14.6 % (11.6-17.2); WHITE BLOOD COUNT 6.7 TH/MM3 (4.0-11.0)
[2017-09-15 18:54] LABS: CHLORIDE 110 MEQ/L (98-107); SODIUM (NA) 142 MEQ/L (136-145)
[2017-09-15 18:56] LABS: CALCIUM 8.8 MG/DL (8.5-10.1)
[2017-09-15 18:57] LABS: BICARBONATE 24.4 MEQ/L (21.0-32.0); BLOOD UREA NITROGEN 22 MG/DL (7-18); GLUCOSE,RANDOM 118 MG/DL (74-106); LIPASE 284 U/L (73-393)
[2017-09-15 19:00] LABS: CREATININE 0.96 MG/DL (0.50-1.00); GLOMERULAR FILTRATION RATE 57 ML/MIN (>89)
[2017-09-15 19:05] LABS: TROPONIN I LESS THAN 0.02 NG/ML (0.02-0.05)
[2017-09-15 19:35] LABS: PROTHROMBIN TIME - PATIENT 11.4 SEC (9.8-11.6)
[2017-09-15] MEDS ORDERED: SODIUM CHLORIDE 0.9% FLUSH 10 ML FLUSH IV FLUSH PRN (20:00)
[2017-09-15 21:25] LABS: TROPONIN I LESS THAN 0.02 NG/ML (0.02-0.05)
--- NOTE | 2017-09-15 21:35 | EKG ---
Date Performed: 09/15/2017 Time Performed: 17:40:28 PTAGE: 76 years EKG: ELECTRONIC ATRIAL PACEMAKER BORDERLINE LEFT AXIS DEVIATION ABNORMAL RHYTHM ECG PREVIOUS TRACING : 05/15/2017 07.48 Compared to prior tracing no significant change DOCTOR: Kath Suarez Interpretating Date/Time 09/15/2017 21:35:08
[2017-09-15] MEDS ORDERED: NITROGLYCERIN 0.4 MG SL 25 TABS/BTL SL PRN (22:00)
[2017-09-15] MEDS: SODIUM CHLORIDE 0.9% FLUSH 10 ML FLUSH IV FLUSH SCH (22:46)
[2017-09-16] VITALS: BP 151/68; PULSE 61; RESP 20; TEMP 96.1; O2SAT 98
[2017-09-16 00:56] LABS: TROPONIN I LESS THAN 0.02 NG/ML (0.02-0.05)
[2017-09-16 04:00] VITALS: BP 118/63; PULSE 63; RESP 18; TEMP 96; O2SAT 96
[2017-09-16] MEDS ORDERED: LORazepam 0.5 MG TAB PO PRN (07:45)
[2017-09-16 07:50] VITALS: BP 130/64; PULSE 59; RESP 20; TEMP 96.9; O2SAT 94
[2017-09-16] MEDS: SODIUM CHLORIDE 0.9% FLUSH 10 ML FLUSH IV FLUSH SCH (08:33)
[2017-09-16] MEDS ORDERED: ASPIRIN 81 MG CHEW TAB CHEW SCH (09:00)
[2017-09-16] MEDS ORDERED: EZETIMIBE 10 MG TAB PO SCH (09:00)
[2017-09-16] MEDS ORDERED: LOSARTAN 25 MG TAB PO SCH (09:00)
[2017-09-16] MEDS ORDERED: ATENOLOL 25 MG TAB PO SCH (09:00)
[2017-09-16] MEDS ORDERED: PANTOPRAZOLE SOD 40 MG DELAYED RELEASE TAB PO SCH (09:00)
--- NOTE | 2017-09-16 10:46 | HHI.DCPOC ---
Discharge Care Plan Diagnosis: (1) Chest pain Goals to Promote Your Health * To prevent worsening of your condition and complications * To maintain your health at the optimal level Directions to Meet Your Goals Take your medications as prescribed Follow your dietary instruction Follow activity as directed Keep your appointments as scheduled Take your immunizations and boosters as scheduled If your symptoms worsen call your PCP, if no PCP go to Urgent Care Center or Emergency Room Smoking is Dangerous to Your Health. Avoid second hand smoke Call the 24-hour hour crisis hotline for domestic abuse at Quan Silveira Sep 16, 2017 10:46
--- NOTE | 2017-09-16 10:46 | HHI.DCPOC ---
Discharge Care Plan Diagnosis: (1) Chest pain Goals to Promote Your Health * To prevent worsening of your condition and complications * To maintain your health at the optimal level Directions to Meet Your Goals Take your medications as prescribed Follow your dietary instruction Follow activity as directed Keep your appointments as scheduled Take your immunizations and boosters as scheduled If your symptoms worsen call your PCP, if no PCP go to Urgent Care Center or Emergency Room Smoking is Dangerous to Your Health. Avoid second hand smoke Call the 24-hour hour crisis hotline for domestic abuse at Quan Silveira Sep 16, 2017 10:46
--- NOTE | 2017-09-16 10:46 | HHI.DCPOC ---
Discharge Care Plan Diagnosis: (1) Chest pain Goals to Promote Your Health * To prevent worsening of your condition and complications * To maintain your health at the optimal level Directions to Meet Your Goals Take your medications as prescribed Follow your dietary instruction Follow activity as directed Keep your appointments as scheduled Take your immunizations and boosters as scheduled If your symptoms worsen call your PCP, if no PCP go to Urgent Care Center or Emergency Room Smoking is Dangerous to Your Health. Avoid second hand smoke Call the 24-hour hour crisis hotline for domestic abuse at Quan Silveira Sep 16, 2017 10:46
--- NOTE | 2017-09-16 11:06 | HHI.HP ---
[facility] Admission Diagnosis Chest pain Diagnoses: (1) Chest pain Diagnosis: Principal Chief Complaint: Chest pain Travel History International Travel<30 Days: No Contact w/Intl Traveler <30 Da: No Traveled to Known Affected Are: No History of Present Illness Written by Quan Silveira, acting as scribe for Dr. Bucio on 09/16/17 at 10 :55. 76-year-old female with known history of hypertension, bradycardia, pacemaker placement, hyperlipidemia, chronic obstructive pulmonary disease who presented to the hospital because of chest discomfort. Patient indicates that she has been having left anterior chest discomfort chronically ever since she had her pacemaker put in 2-1/2 years ago. As indicated that she had her pacemaker put in due to bradycardia. Since then she always has a constant dull ache in the area of the pacemaker. She does get intermittent episodes of a shocking type pain which she describes as sharp and stabbing 8/10 on a pain scale. She states that happening again yesterday when she was sitting watching TV. She denied any nausea, vomiting, diaphoresis, shortness of breath, dyspnea. The patient went to [facility] and they evaluated her and discharge her home. Because she continued to have the pain she came to [facility] for evaluation. As indicated that patient had her pacemaker checked last Thursday. She does have an appointment with her innersole fitter today. Last stress test was 9 months ago at [facility] which was normal. Patient had workup done emergency department and is recommended patient be observed and chest pain center for further evaluation and management. 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 Right wrist surgery Cardiac catheterization Reported Medications Reported Meds & Active Scripts Active Reported Vitamin D3 (Cholecalciferol) 1,000 Unit Tab 1,000 Units PO DAILY Vitamin B-12 (Cyanocobalamin) 1,000 Mcg Subl 1,000 Mcg SL DAILY Hydrocodone-Acetaminophen 5-325 mg Tab 1 Tab PO Q8HR PRN Aspirin 81 Mg Chew 81 Mg CHEW DAILY Norvasc (Amlodipine Besylate) 2.5 Mg Tab 2.5 Mg PO HS Albuterol Neb (Albuterol Sulfate) 0.63 Mg/3 Ml Neb 0.63 Mg NEB Q4HR NEB PRN Fluticasone Nasal [place] 50 Mcg/Act Naspr 100 Mcg EACH NARE BID 50 mcg/spray Zetia (Ezetimibe) 10 Mg Tab 10 Mg PO DAILY Losartan (Losartan Potassium) 25 Mg Tab 25 Mg PO DAILY Protonix (Pantoprazole Sodium) 40 Mg Tab 40 Mg PO DAILY Ativan (Lorazepam) 1 Mg Tab 1.5 Mg PO TID PRN Atenolol 25 Mg Tab 25 Mg PO DAILY Allergies: Coded Allergies: chlorpheniramine (Unverified Allergy, Severe, 09/15/17) clavulanic acid (Unverified Allergy, Severe, 09/15/17) guaifenesin (Unverified Allergy, Severe, PVC, 09/15/17) PT REPORTS ALLERGY TO ALL DECONGESTANTS levofloxacin (Unverified Allergy, Severe, NAUSEA/VOMITING, 09/15/17) INTERMEDIATE REACTION niacin (Unverified Allergy, Severe, SKIN BURNING ; SEVERE REDNESS WHOLE BODY, 09/15/17) pseudoephedrine (Unverified Allergy, Severe, 09/15/17) ticarcillin (Unverified Allergy, Severe, 09/15/17) amoxicillin (Unverified Allergy, Intermediate, NAUSEA AND VOMITING, ) codeine (Unverified Allergy, Intermediate, SHAKING; NAUSEA, 09/15/17) MILD REACTION diphenhydramine (Unverified Allergy, Intermediate, PVC, 09/15/17) PT DOES NOT THINK SHE IS ALLERGIC TO THIS morphine (Unverified Allergy, Mild, 09/15/17) DOESNT THINK SHE IS ALLERGIC TO THIS ciprofloxacin (Unverified Adverse Reaction, Intermediate, n/v, 09/15/17) Uncoded Allergies: ANTIHISTIMINES (Allergy, Unknown, 05/16/14) DECONGESTANTS (Allergy, Unknown, 05/16/14) Family History No significant family history indicated Social History Patient quit smoking 35 years ago, denies any alcohol or illicit drug use Physical Exam Vital Signs Vital Signs Date Time Temp Pulse Resp B/P (MAP) Pulse Ox O2 Delivery O2 Flow Rate FiO2 09/16/17 07:50 96.9 59 20 130/64 (86) 94 09/16/17 04:00 96.0 63 18 118/63 (81) 96 09/16/17 00:00 96.1 61 20 151/68 (95) 98 09/15/17 23:50 96 21 09/15/17 21:33 68 18 119/57 (77) 94 09/15/17 21:30 96.3 60 20 165/76 (105) 98 09/15/17 19:33 60 16 134/63 (86) 97 Room Air 09/15/17 18:22 62 16 106/59 (75) 96 Room Air 09/15/17 17:51 97 Room Air 09/15/17 17:46 97.8 76 18 149/61 (90) 97 Physical Exam GENERAL: Well-developed, well-nourished, in no acute distress. alert and orientated HEENT: Head is normocephalic without any lesions or masses noted. Facial features are symmetric. Eyes: Pupils equal round reactive to light. Extraocular muscles are intact. Conjunctivae were clear. Oropharyngeal: Pharynx without any erythema edema. Tongue is midline without deviation. Buccal mucosa is moist without any masses or lesions NECK: Supple without any masses. Trachea midline no deviation. No JVD, no bruits are appreciated CARDIAC: Regular rhythm, regular rate. S1/S2 are heard. No murmurs gallops or rubs. Reproducible palpable tenderness noted around the pacemaker, patient states that is the same pain that she experiences all the time as well as her presenting pain LUNGS: Clear to auscultation bilaterally. No wheeze, rhonchi or rales. No use of accessory muscles on inspiration or expiration. ABDOMEN: Soft, nontender. Nondistended. Bowel sounds heard in all 4 quadrants. No organomegaly or masses. Negative rebound, negative guarding EXTREMITIES: No edema, pulses are equal bilaterally. No cyanosis or clubbing NEUROLOGY: Mood and affect appear appropriate. Cranial nerves II through XII grossly intact. Muscle strength 5/5 in upper and lower extremities bilaterally. Deep tendon reflexes are 2+ in upper and lower extremities bilaterally. Laboratory Laboratory Tests Test 09/15/17 17:45 09/15/17 21:00 09/16/17 00:15 White Blood Count 6.7 Red Blood Count 4.15 Hemoglobin 11.8 Hematocrit 36.1 Mean Corpuscular Volume 87.1 Mean Corpuscular Hemoglobin 28.5 Mean Corpuscular Hemoglobin Concent 32.7 Red Cell Distribution Width 14.6 Platelet Count 336 Mean Platelet Volume 8.5 Neutrophils (%) (Auto) 69.5 Lymphocytes (%) (Auto) 20.9 Monocytes (%) (Auto) 6.5 Eosinophils (%) (Auto) 1.8 Basophils (%) (Auto) 1.3 Neutrophils # (Auto) 4.7 Lymphocytes # (Auto) 1.4 Monocytes # (Auto) 0.4 Eosinophils # (Auto) 0.1 Basophils # (Auto) 0.1 CBC Comment DIFF FINAL Differential Comment Prothrombin Time 11.4 Prothromb Time International Ratio 1.0 Activated Partial Thromboplast Time 28.7 Blood Urea Nitrogen 22 Creatinine 0.96 Random Glucose 118 Calcium Level 8.8 Sodium Level 142 Potassium Level 3.6 Chloride Level 110 Carbon Dioxide Level 24.4 Anion Gap 8 Estimat Glomerular Filtration Rate 57 Troponin I LESS THAN 0.02 LESS THAN 0.02 LESS THAN 0.02 Lipase 284 Total Creatine Kinase 72 63 Result Diagram: 09/15/17174409/15/171744 Imaging Last Impressions Chest X-Ray 09/15/171752 Signed Impressions: Service Date/Time: Friday, September 15, 2017 18:08 - CONCLUSION: No acute cardiopulmonary disease. MD Kathryn Rebolledo VTE Risk Assessment Caprini VTE Risk Assessment: Mod/High Risk (score >= 2) Caprini Risk Assessment Model Point Value = 1 Point Value = 2 Point Value = 3 Point Value = 5 Age 41-60 Minor surgery BMI > 25 kg/m2 Swollen legs Varicose veins or History of unexplained or recurrent spontaneous Oral contraceptives or hormone replacement Sepsis (< 1 month) Serious lung disease, including pneumonia (< 1 month) Abnormal pulmonary function Acute myocardial infarction Congestive heart failure (< 1 month) History of inflammatory bowel disease Medical patient at bed rest Age 61-74 Arthroscopic surgery Major open surgery (> 45 min) Laparoscopic surgery (> 45 min) Malignancy Confined to bed (> 72 hours) Immobilizing plaster cast Central venous access Age >= 75 History of VTE Family history of VTE Factor V Leiden Prothrombin [id number] Lupus anticoagulant Anticardiolipin antibodies Elevated serum homocysteine Heparin-induced thrombocytopenia Other congenital or acquired thrombophilia Stroke (< 1 month) Elective arthroplasty Hip, pelvis, or leg fracture Acute spinal cord injury (< 1 month) Prophylaxis Regimen Total Risk Factor Score Risk Level Prophylaxis Regimen 0-1 Low Early ambulation 2 Moderate Order ONE of the following: *Sequential Compression Device (SCD) *Heparin 5000 units SQ BID 3-4 Higher Order ONE of the following medications: *Heparin 5000 units SQ TID *Enoxaparin/Lovenox 40 mg SQ daily (WT < 150 kg, CrCl > 30 mL/min) *Enoxaparin/Lovenox 30 mg SQ daily (WT < 150 kg, CrCl > 10-29 mL/min) *Enoxaparin/Lovenox 30 mg SQ BID (WT < 150 kg, CrCl > 30 mL/min) AND/OR *Sequential Compression Device (SCD) 5 or more Highest Order ONE of the following medications: *Heparin 5000 units SQ TID (Preferred with Epidurals) *Enoxaparin/Lovenox 40 mg SQ daily (WT < 150 kg, CrCl > 30 mL/min) *Enoxaparin/Lovenox 30 mg SQ daily (WT < 150 kg, CrCl > 10-29 mL/min) *Enoxaparin/Lovenox 30 mg SQ BID (WT < 150 kg, CrCl > 30 mL/min) AND *Sequential Compression Device (SCD) Assessment and Plan Assessment and Plan Chest pain, atypical, chronic Patient with increased risk factors to include age, hypertension, hyperlipidemia , history tobacco use Discussed with patient's innersole fitter Dr. Salvador, he indicates that patient has had multiple workups, evaluations, treatments for her chronic chest discomfort since implantation of her pacemaker. The patient has had recent provocative testing within the last year, there is no need to pursue any stress test at this time. Since the patient has been ruled out with cardiac enzymes for any acute coronary event, Dr. Barbour recommended that the patient may be discharged with outpatient follow-up. Hypertension, hyperlipidemia Continue home medications Anxiety Continue home medications Discharge disposition Discharge home in stable condition Activity: Ad fifi. Diet: Healthy heart diet Medications per medication reconciliation Follow-up with primary medical doctor one week, innersole fitter in 3-5 days Discussed Condition With This note was transcribed by tano Silveira. I, Dr. Van Bucio personally performed the history, physical exam, and medical decision making; and confirmed the accuracy of the information in the transcribed note. Authenticated by Dr. Van Bucio on 09/16/17 at 13:39. Problem Qualifiers (1) Chest pain: Qualified Codes: R07.89 - Other chest pain Quan Silveira Sep 16, 2017 11:06 Van Bucio DO Sep 16, 2017 13:39
[2017-09-16 11:30] VITALS: BP 127/74; PULSE 60; RESP 20; TEMP 96; O2SAT 97
[2017-09-16] MEDS ORDERED: amLODIPine BESYLATE 5 MG TAB PO SCH (21:00)
== END 2017-09-16 14:14 | disposition home or self-care (01) ==
LOC: PHED 17:31 → PHEDA 19:49 → PH3B 21:28
PROVIDERS: ADMIT Hospitalist; ATTEND Hospitalist
DX: R07.9 Chest pain, unspecified (principal); R11.0 Nausea; J44.9 Chronic obstructive pulmonary disease, unspecified; I10 Essential (primary) hypertension; E78.00 Pure hypercholesterolemia, unspecified; K21.9 Gastro-esophageal reflux disease without esophagitis; K29.70 Gastritis, unspecified, without bleeding; K57.92 Diverticulitis of intestine, part unspecified, without perforation or abscess without bleeding; K44.9 Diaphragmatic hernia without obstruction or gangrene; M54.9 Dorsalgia, unspecified; M25.569 Pain in unspecified knee; M19.90 Unspecified osteoarthritis, unspecified site; G43.909 Migraine, unspecified, not intractable, without status migrainosus
CPT/HCPCS: 71010; 80048; 82550; 83690; 84484; 85025; 85610; 85730; 93005; 99285; G0378